=== PATIENT | female | born 1955 | race Caucasian/White ===

== ENCOUNTER 2016-11-27 18:55 | Emergency (ER) | payer MEDICAID ==
--- NOTE | 2016-11-27 19:50 | EDM.PDOC ---
ED HPI GENERAL MEDICAL PROBLEM - General Chief Complaint: Upper Extremity Injury/Pain Stated Complaint: FELL HURT THUMB Time Seen by Provider: 11/27/16 19:45 Source of Information: Reports: Patient History Limitations: Reports: No Limitations - History of Present Illness INITIAL COMMENTS - FREE TEXT/NARRATIVE: Fell off a step while trying to go to the bathroom about 6pm today. Fell onto her right hand injuring hand and thumb. Onset: Today, Sudden Onset Date: 11/27/16 Onset Time: 18:00 Duration: Getting Worse Location: Reports: Upper Extremity, Right Quality: Reports: Throbbing Severity: Moderate Improves with: Reports: None Worsens with: Reports: Movement Context: Reports: Activity Associated Symptoms: Reports: No Other Symptoms right thumb Pain Score (Numeric/FACES): 6 Review of Systems - Review of Systems Review Of Systems: See Below Constitutional: Reports: No Symptoms Respiratory: Reports: No Symptoms Cardiovascular: Reports: No Symptoms GI/Abdominal: Reports: No Symptoms Musculoskeletal: Reports: Hand Pain (right) Skin: Reports: Bruising (right hand and thumb with bruising) Neurological: Reports: No Symptoms Trauma Exam - Physical Exam Exam: See Below Exam Limited By: No Limitations General Appearance: Reports: Alert, WD/WN, No Apparent Distress Head: Reports: Atraumatic, Normocephalic Respiratory Exam: Reports: No Respiratory Distress, Lungs Clear, Normal Breath Sounds Cardiovascular: Reports: Normal Peripheral Pulses, Regular Rate, Rhythm, No Edema, No Gallop, No JVD, No Murmur, No Rub Extremities: Bony-Point Tenderness (right thumb), Tenderness Neurologic: Reports: sample carrier II-XII nml As Tested, No Motor/Sensory Deficits, Alert , Normal Mood/Affect, Oriented x 3 Skin: Reports: Ecchymosis (right thumb and top of hand with mild bruising) Course - Vital Signs Last Recorded V/S: Last Vital Signs Temp 98.5 F 11/27/16 19:31 Pulse 98 11/27/16 19:31 Resp 16 11/27/16 19:31 BP 196/124 H 11/27/16 19:31 Pulse Ox 97 11/27/16 19:31 - Orders/Labs/Meds Orders: Active Orders 24 hr Category Date Time Status Hand Comp Min 3V Rt [CR] Stat Exams 11/27/16 19:27 Ordered Departure - Departure Time of Disposition: 19:50 Disposition: Home, Self-Care 01 Clinical Impression: Contusion of hand, right Qualifiers: Encounter type: initial encounter Qualified Code(s): S60.221A - Contusion of right hand, initial encounter - Discharge Information Instructions: Cast or Splint Care, [id number]-[id number] Forms: ED Department Discharge Additional Instructions: Xray does show a small chip fracture of her right proximal thumb. Pt to be placed in an cristian wrap and given copies of the xray for followup this week. To continue ice, elevation and Ibuprofen for pain. Fall risk prevention discussed. Pt to see orthopedics in [place] this week. - Problem List & Annotations (1) Contusion of hand, right SNOMED Code(s): 0576168 Code(s): S60.221A - CONTUSION OF RIGHT HAND, INITIAL ENCOUNTER Status: Acute Priority: Medium Current Visit: Yes Qualifiers: Encounter type: initial encounter Qualified Code(s): S60.221A - Contusion of right hand, initial encounter - My Orders Last 24 Hours: My Active Orders 11/27/16 19:27 Hand Comp Min 3V Rt [CR] Stat - Assessment/Plan Last 24 Hours: My Active Orders 11/27/16 19:27 Hand Comp Min 3V Rt [CR] Stat
[2016-11-27 20:36] VITALS: BP 164/91
--- NOTE | 2016-11-30 08:53 | CR ---
Fracture the base of the first metacarpal with fracture fragment measuring 9 mm. Probable additional linear fracture fragment proximal to it. There is proximal subluxation/dislocation at the first MCP joint.
== END 2016-11-27 20:41 | disposition home or self-care (01) ==
LOC: JP.ED 18:55
DX: S60.221A Contusion of right hand, initial encounter (principal); W19.XXXA Unspecified fall, initial encounter; Y92.091 Bathroom in other non-institutional residence as the place of occurrence of the external cause
CPT/HCPCS: 73130-26-RT; 73130-RT; 99284